=== PATIENT | male | born 1970 | race Hispanic/Latino ===

== ENCOUNTER 2022-02-08 06:55 | Day surgery (SDC) | payer OTHER ==
[2022-02-05 14:45] VITALS: BP 148/85
[2022-02-05 15:09] LABS: CREATININE 0.8 mg/dL (0.5-1.5); POTASSIUM 3.7 mmol/L (3.5-5.1)
[~2022-02-08] VITALS: Ht 172.7 cm; Wt 82.3 kg
[2022-02-08] VITALS (16 sets, daily range): BP systolic 115–173; BP diastolic 69–106
[~2022-02-08 06:55] MED LIST: AEC81 PO
[2022-02-08] MEDS ORDERED: EPINEPHRINE 1 MG/ML 30ML VIAL IJ ONE (06:57)
[2022-02-08] MEDS ORDERED: LIDOCAINE 1%-EPI 1:100,000 20 ML VIAL IJ ONE ×2 (06:57→10:09)
[2022-02-08] MEDS ORDERED: LACTATED RINGERS 1000ML 0 ML IV ONE (08:05)
[2022-02-08] MEDS ORDERED: MIRT-22 PO (08:11)
[2022-02-08] MEDS ORDERED: METF-444 PO (08:11)
[2022-02-08] MEDS ORDERED: BUSP10TA3 PO (08:11)
[2022-02-08] MEDS ORDERED: METO25TA6 PO (08:11)
[2022-02-08] MEDS ORDERED: TAMS-1 PO (08:11)
[2022-02-08] MEDS ORDERED: 0.9%NACL 1000ML 1,000 ML IV ONE (08:23)
[2022-02-08] MEDS ORDERED: CIPROFLOXACIN HCL/DEXAMETH 7.5 ML DROPS.SUSP OTIC ONE (08:25)
[2022-02-08] MEDS ORDERED: BACITRACIN 28.4 GM OINT TP ONE (08:58)
[2022-02-08] MEDS ORDERED: MIDAZOLAM HCL 1 MG/ML 2ML VIAL ONE (09:10)
[2022-02-08] MEDS ORDERED: GLYCOPYRROLATE 1 MG/5 ML SYRINGE ONE (09:10)
[2022-02-08] MEDS ORDERED: LIDOCAINE PF 100MG/5ML (2%) SYRINGE 5ML ONE (09:10)
[2022-02-08] MEDS ORDERED: NEOSTIGMINE 5MG/5ML SYR IV ONE (09:10)
[2022-02-08] MEDS ORDERED: DEXAMETHASONE SOD PHOSPHATE 10MG/ML 1ML VIAL ONE (09:10)
[2022-02-08] MEDS ORDERED: ROCURONIUM 10MG/1ML SYR 10 MG/ML ML ONE ×2 (09:11→10:15)
[2022-02-08] MEDS ORDERED: FENTANYL CITRATE PF 50 MCG/1 ML 2ML VIAL ONE (09:11)
[2022-02-08] MEDS ORDERED: MUPIROCIN OINTMENT 22 GM TUBE TP SCH (09:30)
[2022-02-08] MEDS ORDERED: CEFAZOLIN SODIUM 1 GM VIAL ONE (10:02)
[2022-02-08] MEDS ORDERED: CEFAZOLIN SODIUM 2 GM VIAL IV ONE (10:05)
[2022-02-08] MEDS ORDERED: HYDROCODONE/ACETAMINOPHEN 7.5/325 MG TAB ONE (13:01)
== END 2022-02-08 14:20 | disposition home or self-care (01) ==
LOC: DAH 06:55
PROVIDERS: ATTEND Otolaryngology
DX: H70.12 Chronic mastoiditis, left ear (principal); H92.02 Otalgia, left ear; H61.392 Other acquired stenosis of left external ear canal; Z79.899 Other long term (current) drug therapy; E11.9 Type 2 diabetes mellitus without complications; I10 Essential (primary) hypertension; Z98.890 Other specified postprocedural states
CPT/HCPCS: 36415; 69644; 80048; 82948 ×2; 87635; A4215; A4221; A4222; A4223; A4600; A4649; A4663; A6446; C1713; C1729; C9803; J0171; J0690 ×2; J1100; J2001; J2250; J2710; J3010; J3490 ×3; J7030 ×2; J7040; J7120